=== PATIENT | male | born 1950 | race Caucasian/White ===

== ENCOUNTER 2023-08-08 06:06 | Observation (INO) ==
[~2023-08-08 06:06] MED LIST: Buffered Lidocaine 1% SYRIN 1 ml INTRADERM ONE; Famotidine IV 10 MG/ML 2 ml VIAL (20 mg) IV ONE; Lactated Ringers 1000 ml BAG 1,000 ML IV SCH
[2023-08-08] MEDS ORDERED: Propofol 10 MG/ML 20 ML BTL ONE (06:43)
[2023-08-08] MEDS ORDERED: Dexamethasone IV 4 MG/ML VIAL 1 ml VIAL ONE ×2 (06:43→08:01)
[2023-08-08] MEDS ORDERED: Rocuronium 50 mg VIAL 10 mg/ml 5 ml VIAL (50 mg) ONE (06:43)
[2023-08-08] MEDS ORDERED: Ondansetron 4 mg VIAL 2 MG/ML 2 ml VIAL ONE (06:43)
[2023-08-08] MEDS ORDERED: Lidocaine 2% PF 5 ML VIAL ONE (06:43)
[2023-08-08] MEDS ORDERED: fentaNYL 100 mcg/2 ml 50 MCG/ML VIAL ONE ×2 (06:43→07:27)
[2023-08-08] MEDS ORDERED: ceFAZolin 2 GM in NS PREMIX 2 GM/100 ML BAG IVPB ONE (06:47)
[2023-08-08] MEDS ORDERED: Famotidine IV 10 MG/ML 2 ml VIAL (20 mg) ONE (06:47)
[2023-08-08] MEDS ORDERED: Vancomycin 1,000 MG VIAL ONE (07:14)
[2023-08-08 07:25] LABS: Rapid COVID-19 Molecular Undetected (Undetected)
[2023-08-08] MEDS ORDERED: Bupivacaine 0.25% w/EPI 10 ML SDV ONE (07:27)
[2023-08-08] MEDS ORDERED: Midazolam 2 mg/2 ml VIAL 1 mg/ml 2 ml VIAL (2 mg) ONE (07:27)
[2023-08-08] MEDS ORDERED: Naloxone 0.4 mg VIAL 0.4 mg/ml 1 ml VIAL IV PRN (08:50)
[2023-08-08] MEDS ORDERED: fentaNYL 100 mcg/2 ml 50 MCG/ML VIAL IV PRN (08:50)
[2023-08-08] MEDS ORDERED: Ondansetron 4 mg VIAL 2 MG/ML 2 ml VIAL IV PRN ×2 (08:50→11:04)
[2023-08-08] MEDS ORDERED: HYDROmorphone 1 MG/1 ML SYRINGE IV PRN (08:50)
[2023-08-08] MEDS ORDERED: Dexmedetomidine 200 mcg/2 ml 2 ml VIAL (200 mcg) ONE (09:30)
[2023-08-08] MEDS ORDERED: Sterile Water for Inj 10 ML ONE (10:19)
[2023-08-08] MEDS ORDERED: Magnesium Hydroxide LIQ 30 ML UDC PO PRN (11:04)
[2023-08-08] MEDS ORDERED: Ondansetron ODT 4 mg TAB 4 MG TAB PO PRN (11:04)
[2023-08-08] MEDS ORDERED: Morphine 2 MG/ML SYRINGE IV PRN (11:04)
[2023-08-08] MEDS ORDERED: Lactulose 30 ml UDC PO PRN (11:04)
[2023-08-08] MEDS: Lactated Ringers 1000 ml BAG 1,000 ML IV SCH ×2 (13:18→23:26)
[2023-08-08] MEDS: ceFAZolin 1 GM ADVAN 1 GM in NS 0.9% 50 ML 50 ML IVPB SCH ×2 (15:49→23:26)
[2023-08-08] MEDS: Ranolazine 500 mg TAB ER (NF) PO SCH (20:23)
[2023-08-08] MEDS: Magnesium Hydroxide LIQ 30 ML UDC PO SCH (20:24)
[2023-08-08] MEDS ORDERED: Isosorbide Mononit ER 30mg TAB PO SCH (21:00)
[2023-08-09 05:45] LABS: Platelet Count 179 10^3/uL (150-450)
[2023-08-09 05:52] LABS: Hematocrit 28.3 % (38-53); Hemoglobin 9.7 g/dL (13.2-16.3); Mean Platelet Volume 9.7 fL (7.5-11.2)
[2023-08-09 05:59] LABS: Calcium 8.3 mg/dL (8.6-10.3); Creatinine, Serum 1.44 mg/dL (0.67-1.17); Potassium 4.2 mmol/L (3.5-5.0); eGFR CKD-EPI 51.9 (>60)
[2023-08-09] MEDS: Magnesium Hydroxide LIQ 30 ML UDC PO SCH (08:26)
[2023-08-09] MEDS: ceFAZolin 1 GM ADVAN 1 GM in NS 0.9% 50 ML 50 ML IVPB SCH (08:26)
[2023-08-09] MEDS: Ranolazine 500 mg TAB ER (NF) PO SCH (08:26)
[2023-08-09] MEDS ORDERED: Aspirin EC 81 mg TAB.EC (enteric coated) PO SCH (09:00)
[2023-08-09] MEDS ORDERED: NON FORMULARY MED (Multivitamin Tablet) PO SCH (09:00)
[2023-08-09] MEDS ORDERED: Vitamin THERAPEUTIC TAB PO SCH (09:00)
[2023-08-09] MEDS ORDERED: Isosorbide Mononit ER 60mg TAB PO SCH (09:00)
[2023-08-09 10:28] VITALS: BP 160/74
== END 2023-08-09 13:10 | disposition home or self-care (01) ==
LOC: INTOOBSV 06:06 → AA 06:06 → SSU 12:39
PROVIDERS: ADMIT Orthopaedic Surgery; ATTEND Orthopaedic Surgery